=== PATIENT | male | born 1980 | race Caucasian/White ===

== ENCOUNTER 2018-06-28 16:21 | Emergency (ER) | payer SELFPAY ==
--- NOTE | 2018-06-28 17:48 | ER ---
Nurse's Notes [facility] Name: Dennis Donahue Age: 38 yrs Sex: Male : 1980 Arrival Date: 06/28/2018 Time: 16:23 Bed 26 Private MD: None, None Diagnosis: Dysuria-left testicular cystic finding Presentation: 06/28 16:23 Presenting complaint: Patient states: "There's something in my testicles I can feel it" aj1 Patient states that he can feel a lump on his left testicle, reports left testicular pain that radiates down his left leg. States that he first felt the lump one week ago but it has only gotten bigger and more painful. 2 days ago he noticed the left testicle has started hanging lower than the other one, which he states had not been happening prior. Patient appears pale. Patient also reports night sweats for the past weeks and "white stuff" in his stool". Transition of care: patient was not received from another setting of care. Onset of symptoms was June 21, 2018. Risk Assessment: Do you want to hurt yourself or someone else? Patient reports no desire to harm self or others. Initial Sepsis Screen: Does the patient meet any 2 criteria? No. Patient's initial sepsis screen is negative. Does the patient have a suspected source of infection? No. Patient's initial sepsis screen is negative. Care prior to arrival: None. 16:23 Method Of Arrival: Ambulatory aj1 16:23 Acuity: STEPHANY 2 aj1 Triage Assessment: 16:27 General: Appears uncomfortable, Behavior is calm, cooperative, appropriate for age. aj1 Pain: Complains of pain in left testicle Pain currently is 3 out of 10 on a pain scale. Neuro: Level of Consciousness is awake, alert, obeys commands. Cardiovascular: Patient's skin is warm and dry. Respiratory: Airway is patent Respiratory effort is even, unlabored, Respiratory pattern is regular, symmetrical. Historical: - Allergies: 16:27 No Known Allergies; aj1 - Home Meds: 16:27 None [Active]; aj1 - PMHx: 16:27 None; aj1 - PSHx: 16:27 Appendectomy; aj1 - Immunization history:: Flu vaccine is not up to date. - Social history:: Smoking status: Patient uses tobacco products, smokes one-half pack cigarettes per day. - Ebola Screening: : Patient denies travel to an Ebola-affected area in the 21 days before illness onset. - Family history:: not pertinent. Screenin:18 Abuse screen: Denies threats or abuse. Denies injuries from another. Nutritional iw screening: No deficits noted. Tuberculosis screening: No symptoms or risk factors identified. Fall Risk None identified. Vital Signs: 16:27 BP 116 / 72; Pulse 92; Resp 20; Temp 98.0; Pulse Ox 100% on R/A; Weight 74.84 kg (R); aj1 Height 6 ft. 3 in. (190.50 cm) (R); Pain 3/10; 16:27 Body Mass Index 20.62 (74.84 kg, 190.50 cm) aj1 ED Course: 16:23 Patient arrived in ED. mr 16:23 None, None is Private Physician. mr 16:26 Triage completed. aj1 16:27 Arm band placed on Patient placed in waiting room, Patient notified of wait time. aj 16:39 Julio Benitez MD is Attending Physician. [facility] 16:43 Liliam Ramos, RN is Primary Nurse. iw 17:34 Scrotum Testicles In Process Unspecified. EDNE 17:47 Latrice Arriola MD is Referral Physician. phill 18:00 Patient has correct armband on for positive identification. iw 18:19 No provider procedures requiring assistance completed. Patient did not have IV access iw during this emergency room visit. Administered Medications: 18:17 Not Given (Patient Refused): Motrin 600 mg PO once iw Outcome: 17:47 Discharge ordered by . [facility] 18:17 Discharged to home ambulatory. iw 18:17 Condition: good 18:17 Discharge instructions given to patient, Instructed on discharge instructions, follow up and referral plans. Demonstrated understanding of instructions, follow-up care, Prescriptions given X 1. 18:19 Patient left the ED. iw Signatures: Dispatcher [employer] Erica Bell, RN RN aj1 Julio Benitez MD MD cha Rivera, Mary mr Liliam Ramos, RN RN iw Corrections: (The following items were deleted from the chart) 16:28 16:23 Presenting complaint: Patient states: "There's something in my testicles I can aj1 feel it" Patient states that he can feel a lump on his left testicle, reports left testicular pain that radiates down his left leg. States that he first felt the lump one week ago but it has only gotten bigger and more painful. Patient appears pale. Patient also reports night sweats for the past weeks and "white stuff" in his stool" aj1 16:29 16:27 Arm band placed on Patient placed in an exam room, aj1 aj1
--- NOTE | 2018-06-28 17:48 | EDPHYS ---
Physician Documentation [facility] Name: Dennis Donahue Age: 38 yrs Sex: Male : 1980 Arrival Date: 06/28/2018 Time: 16:23 Bed 26 Private MD: None, None ED Physician Julio Benitez HPI: 06/28 16:46 This 38 yrs old Male presents to ER via Ambulatory with complaints of phill Testicular Problem. 16:46 The patient presents with tenderness, that is mild, of the left inguinal area. Onset: phill The symptoms/episode began/occurred 3 day(s) ago. Modifying factors: The symptoms are alleviated by nothing, the symptoms are aggravated by nothing. Associated signs and symptoms: The patient has no apparent associated signs or symptoms. Severity of symptoms: At their worst the symptoms were. The patient has not experienced similar symptoms in the past. Historical: - Allergies: 16:27 No Known Allergies; aj1 - Home Meds: 16:27 None [Active]; aj1 - PMHx: 16:27 None; aj1 - PSHx: 16:27 Appendectomy; aj1 - Immunization history:: Flu vaccine is not up to date. - Social history:: Smoking status: Patient uses tobacco products, smokes one-half pack cigarettes per day. - Ebola Screening: : Patient denies travel to an Ebola-affected area in the 21 days before illness onset. - Family history:: not pertinent. ROS: 16:46 Constitutional: Negative for fever, chills, and weight loss, Eyes: Negative for injury, phill pain, redness, and discharge, ENT: Negative for injury, pain, and discharge, Neck: Negative for injury, pain, and swelling, Cardiovascular: Negative for chest pain, palpitations, and edema, Respiratory: Negative for shortness of breath, cough, wheezing, and pleuritic chest pain, Abdomen/GI: Negative for abdominal pain, nausea, vomiting, diarrhea, and constipation, Back: Negative for injury and pain, MS/Extremity: Negative for injury and deformity, Skin: Negative for injury, rash, and discoloration, Neuro: Negative for headache, weakness, numbness, tingling, and seizure, Psych: Negative for depression, anxiety, suicide ideation, homicidal ideation, and hallucinations, Allergy/Immunology: Negative for hives, rash, and allergies, Endocrine: Negative for neck swelling, polydipsia, polyuria, polyphagia, and marked weight changes, Hematologic/Lymphatic: Negative for swollen nodes, abnormal bleeding, and unusual bruising. 16:46 : Positive for testicular pain of the left testicle. Exam: 16:46 Constitutional: This is a well developed, well nourished patient who is awake, alert, phill and in no acute distress. Head/Face: Normocephalic, atraumatic. Eyes: Pupils equal round and reactive to light, extra-ocular motions intact. Lids and lashes normal. Conjunctiva and sclera are non-icteric and not injected. Cornea within normal limits. Periorbital areas with no swelling, redness, or edema. ENT: Nares patent. No nasal discharge, no septal abnormalities noted. Tympanic membranes are normal and external auditory canals are clear. Oropharynx with no redness, swelling, or masses, exudates, or evidence of obstruction, uvula midline. Mucous membranes moist. Neck: Trachea midline, no thyromegaly or masses palpated, and no cervical lymphadenopathy. Supple, full range of motion without nuchal rigidity, or vertebral point tenderness. No Meningismus. Chest/axilla: Normal chest wall appearance and motion. Nontender with no deformity. No lesions are appreciated. Cardiovascular: Regular rate and rhythm with a normal S1 and S2. No gallops, murmurs, or rubs. Normal PMI, no JVD. No pulse deficits. Respiratory: Lungs have equal breath sounds bilaterally, clear to auscultation and percussion. No rales, rhonchi or wheezes noted. No increased work of breathing, no retractions or nasal flaring. Abdomen/GI: Soft, non-tender, with normal bowel sounds. No distension or tympany. No guarding or rebound. No evidence of tenderness throughout. Back: No spinal tenderness. No costovertebral tenderness. Full range of motion. Skin: Warm, dry with normal turgor. Normal color with no rashes, no lesions, and no evidence of cellulitis. MS/ Extremity: Pulses equal, no cyanosis. Neurovascular intact. Full, normal range of motion. Neuro: Awake and alert, GCS 15, oriented to person, place, time, and situation. Cranial nerves II-XII grossly intact. Motor strength 5/5 in all extremities. Sensory grossly intact. Cerebellar exam normal. Normal gait. Psych: Awake, alert, with orientation to person, place and time. Behavior, mood, and affect are within normal limits. 16:46 : CVA tenderness, is absent, Male external genitalia: normal, Circumcision noted. Bladder: is normal, Sexual behavior: the patient is sexually active. Vital Signs: 16:27 BP 116 / 72; Pulse 92; Resp 20; Temp 98.0; Pulse Ox 100% on R/A; Weight 74.84 kg (R); aj1 Height 6 ft. 3 in. (190.50 cm) (R); Pain 3/10; 16:27 Body Mass Index 20.62 (74.84 kg, 190.50 cm) [facility] MDM: 16:39 Patient medically screened. [facility] 16:48 Data reviewed: vital signs, nurses notes, lab test result(s), radiologic studies, [facility] ultrasound. 06/28 16:46 Order name: Urine Culture [facility] 06/28 16:46 Order name: US Scrotum Testicles [facility] 06/28 16:46 Order name: Urine Dipstick-Ancillary (obtain specimen); Complete Time: 16:54 [facility] Administered Medications: 18:17 Not Given (Patient Refused): Motrin 600 mg PO once iw Disposition: 06/28/18 17:47 Discharged to Home. Impression: Dysuria - left testicular cystic finding. - Condition is Stable. - Discharge Instructions: Dysuria, Testicular Self-Exam, Testicular Self-Exam, [id number]. - Prescriptions for Ibuprofen 600 mg Oral Tablet - take 1 tablet by ORAL route every 8 hours As needed take with food; 21 tablet. - Medication Reconciliation Form, Thank You Letter, Antibiotic Education, Prescription Opioid Use form. - Follow up: Private Physician; When: 2 - 3 days; Reason: Recheck today's complaints, Continuance of care, Re-evaluation by your physician. Follow up: Latrice Arriola; When: 2 - 3 days; Reason: Recheck today's complaints, Continuance of care, Re-evaluation by your physician. - Problem is new. - Symptoms have improved. Signatures: Dispatcher [employer] EDErica Corrales RN RN aj1 Julio Benitez MD MD cha Williams, Irene, RN RN iw Corrections: (The following items were deleted from the chart) 18:19 17:47 06/28/2018 17:47 Discharged to Home. Impression: Dysuria - left testicular cystic iw finding. Condition is Stable. Discharge Instructions: Dysuria, Testicular Self-Exam, Testicular Self-Exam, [id number]. Prescriptions for Ibuprofen 600 mg Oral Tablet - take 1 tablet by ORAL route every 8 hours As needed take with food; 21 tablet. and Forms are Medication Reconciliation Form, Thank You Letter, Antibiotic Education, Prescription Opioid Use. Follow up: Private Physician; When: 2 - 3 days; Reason: Recheck today's complaints, Continuance of care, Re-evaluation by your physician. Follow up: Latrice Arriola; When: 2 - 3 days; Reason: Recheck today's complaints, Continuance of care, Re-evaluation by your physician. Problem is new. Symptoms have improved. phill
--- NOTE | 2018-06-28 18:05 | RAD REPORT ---
EXAM DESCRIPTION: US - Scrotum Testicles - 06/28/2018 5:34 pm CLINICAL HISTORY: PAIN COMPARISON: SCROTUM TESTICLES dated 03/21/2013 FINDINGS: The right testicle 5.0 x 3.2 x 2.4 cm. No intratesticular masses or evidence of testicular torsion. The left testicle 4.1 x 3.1 x 2.0 cm. No intratesticular masses or evidence of testicular torsion. No evidence of epididymitis. Small epididymal cysts versus spermatocele noted on the left. IMPRESSION: No acute or worrisome testicular abnormality.
[2018-06-28] MEDS ORDERED: IBUPROFEN 200 MG TAB PO ONE (18:14)
[2018-06-28 19:16] VITALS: BP 116/72; TEMP 98; O2SAT 100
== END 2018-06-28 18:19 | disposition home or self-care (01) ==
LOC: ER 16:21
DX: R30.0 Dysuria (principal); F17.210 Nicotine dependence, cigarettes, uncomplicated
CPT/HCPCS: 76870; 87086; 87088; 99283